=== PATIENT | male | born 1950 | race Caucasian/White ===

== ENCOUNTER 2018-06-10 11:56 | Day surgery (SDC) | payer MEDICARE ==
[~2018-06-10] VITALS: Ht 185.4 cm; Wt 70.5 kg
[~2018-06-10 11:56] MED LIST: Atrovent Inha12.9 GM INH; BREO ELLIPTA 21 EACH INH; CETI5 PO; Crutch1 EACH MISC; DOXY100 PO; Depo-Testos200 MG/ML IM; GLIP5ER PO; GLYB2.5 PO; Glucophage1000 MG PO; Glyburide5 MG PO; HYDR-86; IPRAOI INH; LIRA0.6P; LOVA40 PO; METF500C PO; MIRT15ST PO; Norco 10-325 T1 EACH PO; PROAIR RESPICL90 MCG INH; Prinivil10 MG PO; SITA100T2 PO; Sudogest60 MG PO; TIOT18 INH
--- NOTE | 2018-06-10 13:15 | NUR ---
06/10/18 1315 Nevaeh Judge 1ST IV ATTEMPT BY MUNIR PORTER. 2ND IV ATTEMPT IN RIGHT AC IS A SUCCESSFUL IV ATTEMPT. PT WASN'T IN DISTRESS DURNING ATTEMPTS.
--- NOTE | 2018-06-10 14:59 | NUR ---
06/10/18 1459 Magali Mendez V COLONOSCOPY ABORTED D/T INCOMPLETE PREP. DR NOT ABLE TO PHOTOGRAPH CECUM.
--- NOTE | 2018-06-10 15:49 | NUR ---
06/10/18 1549 Magali Mendez V PT DENIES ANY NEW PAIN AND NAUSEA AT THIS ITME.
== END 2018-06-10 15:48 | disposition home or self-care (01) ==
LOC: ORSCSDS 11:56
PROVIDERS: Surgery
PROC: 0DB58ZX Excision of Esophagus, Via Natural or Artificial Opening Endoscopic, Diagnostic (ICD-10-PCS; principal; 2018-06-10 13:45)
PROC: 0DBP8ZX Excision of Rectum, Via Natural or Artificial Opening Endoscopic, Diagnostic (ICD-10-PCS; principal; 2018-06-10 13:45)
PROC: 0DB68ZX Excision of Stomach, Via Natural or Artificial Opening Endoscopic, Diagnostic (ICD-10-PCS; principal; 2018-06-10 13:45)
PROC: 0DB98ZX Excision of Duodenum, Via Natural or Artificial Opening Endoscopic, Diagnostic (ICD-10-PCS; principal; 2018-06-10 13:45)
DX: D13.0 Benign neoplasm of esophagus (principal); K25.9 Gastric ulcer, unspecified as acute or chronic, without hemorrhage or perforation; K29.80 Duodenitis without bleeding; K62.1 Rectal polyp; J44.9 Chronic obstructive pulmonary disease, unspecified; E11.9 Type 2 diabetes mellitus without complications; Z79.4 Long term (current) use of insulin; Z79.899 Other long term (current) drug therapy
CPT/HCPCS: 82947; 88305; 88341; 88342

== ENCOUNTER 2022-06-06 01:28 | Day surgery (SDC) | payer MEDICARE | END 2022-06-06 22:58 | disposition home or self-care (01) | LOC: WOUND 01:28 | DX: M87.9 Osteonecrosis, unspecified (principal); E11.59 Type 2 diabetes mellitus with other circulatory complications; J44.9 Chronic obstructive pulmonary disease, unspecified; D50.9 Iron deficiency anemia, unspecified; C61 Malignant neoplasm of prostate; Z72.0 Tobacco use | CPT/HCPCS: G0463 ==

== ENCOUNTER 2023-02-27 16:12 | Inpatient (IN) | payer OTHER ==
[~2023-02-27] VITALS: Ht 185.4 cm; Wt 66.5 kg
[~2023-02-27 16:12] MED LIST changes: +HYDR1TAB94 PO; -Norco 10-325 T1 EACH PO
[2023-02-27 18:10] LABS: BASOPHILS ABSOLUTE AUTO 0.06 K/mm3 (0.00-0.23); BASOPHILS PERCENT AUTO 0 % (0-2); EOSINOPHILS ABSOLUTE AUTO 0.02 K/mm3 (0.00-0.68); EOSINOPHILS PERCENT AUTO 0 % (0-6); Hemoglobin 14.1 g/dL (13.5-17.5); IMMATURE GRAN ABSOLUTE AUTO 0.18 K/mm3 (0.00-0.10); IMMATURE GRAN PERCENT AUTO 1 % (0-1); LYMPHOCYTES ABSOLUTE AUTO 0.88 K/mm3 (0.84-5.20); LYMPHOCYTES PERCENT AUTO 6 % (21-46); MONOCYTES ABSOLUTE AUTO 0.66 K/mm3 (0.16-1.47); MONOCYTES PERCENT AUTO 5 % (4-13); Mean Corpuscular HGB 29.9 pg (26.0-34.0); Mean Corpuscular HGB Conc 32.8 g/dL (31.5-36.5); Mean Corpuscular Volume 91 fL (80-100); Mean Platelet Volume 9.7 fL (9.1-12.4); NEUTROPHILS ABSOLUTE AUTO 11.87 K/mm3 (1.96-9.15); NEUTROPHILS PERCENT AUTO 87 % (41-73); Platelet Count 319 K/mm3 (150-400); RDW Coefficient Variation 13.1 % (11.7-14.2); RDW Standard Deviation 43.4 fL (35.1-46.3); Red Blood Cell Count 4.71 M/mm3 (4.30-5.90); White Blood Cell Count 13.67 K/mm3 (4.00-11.30)
[2023-02-27 18:14] LABS: Source, Urine Clean Catch
[2023-02-27 18:26] LABS: Appearance, Urine Clear (Clear); Bilirubin, Urine Neg (Neg); Blood, Urine Neg (Neg); Color, Urine Yellow (P-Yellow); Glucose Qualitative, Urine 4+ (Neg); Ketones, Urine 4+ (Neg); Leukocyte Esterase, Urine Neg (Neg); Nitrite, Urine Neg (Neg); Protein, Urine 2+ (Neg); Specific Gravity, Urine 1.025 (1.003-1.022); Urobilinogen, Urine NORM (Normal)
[2023-02-27 18:32] LABS: Albumin, Blood 2.4 g/dL (3.4-5.0); Albumin/Globulin Ratio 0.6 (0.8-1.8); Bilirubin, Total 0.5 mg/dL (0.1-1.0); Bun/Creatinine Ratio 28.9 (12.0-20.0); Calcium, Blood 7.7 mg/dL (8.5-10.1); Creatinine, Blood 0.55 mg/dL (0.60-1.20); Globulin, Blood 3.8 g/dL (2.2-4.0); Potassium, Blood 5.2 mmol/L (3.5-5.5); Total Protein, Blood 6.2 g/dL (6.4-8.2)
[2023-02-27 18:34] LABS: White Blood Cells, Urine 0-2 /hpf (0-5)
[2023-02-27 18:35] LABS: Bacteria Few /hpf; Red Blood Cells, Urine 0-2 /hpf (0-2); Squamous Epithelial Cells Not Seen /hpf (Few)
[2023-02-27 22:29] LABS: Base Excess Venous -18.2 mmol/L; Bicarbonate Venous 12.2 mmol/L (24.0-30.0); PCO2 Venous 27.2 mmHg (38-42)
[2023-02-27 22:30] LABS: pH Blood Venous 7.18 (7.34-7.37)
[2023-02-28] VITALS (66 sets, daily range): BP systolic 84–178; BP diastolic 33–125
[2023-02-28 00:24] LABS: Beta-hydroxybutyrate 51.9 mg/dL (0.2-2.8)
[2023-02-28 01:56] LABS: White Blood Cell Count 11.76 K/mm3 (4.00-11.30)
[2023-02-28 01:57] LABS: BASOPHILS ABSOLUTE AUTO 0.07 K/mm3 (0.00-0.23); BASOPHILS PERCENT AUTO 1 % (0-2); EOSINOPHILS ABSOLUTE AUTO 0.04 K/mm3 (0.00-0.68); EOSINOPHILS PERCENT AUTO 0 % (0-6); Hematocrit 39.2 % (37.0-53.0); Hemoglobin 13.6 g/dL (13.5-17.5); IMMATURE GRAN ABSOLUTE AUTO 0.43 K/mm3 (0.00-0.10); IMMATURE GRAN PERCENT AUTO 4 % (0-1); LYMPHOCYTES PERCENT AUTO 9 % (21-46); MONOCYTES ABSOLUTE AUTO 0.87 K/mm3 (0.16-1.47); MONOCYTES PERCENT AUTO 7 % (4-13); Mean Corpuscular HGB 30.6 pg (26.0-34.0); Mean Corpuscular HGB Conc 34.7 g/dL (31.5-36.5); Mean Corpuscular Volume 88 fL (80-100); NEUTROPHILS ABSOLUTE AUTO 9.25 K/mm3 (1.96-9.15); NEUTROPHILS PERCENT AUTO 79 % (41-73); Platelet Count 289 K/mm3 (150-400); RDW Coefficient Variation 13.1 % (11.7-14.2); RDW Standard Deviation 42.4 fL (35.1-46.3); Red Blood Cell Count 4.44 M/mm3 (4.30-5.90)
[2023-02-28] MEDS ORDERED: BUPR150ER PO (03:21)
[2023-02-28] MEDS ORDERED: PERIDEX15 ML MM (03:22)
[2023-02-28] MEDS ORDERED: IBUP800 PO (03:26)
[2023-02-28] MEDS ORDERED: ONDA4ODT MM (03:29)
[2023-02-28] MEDS ORDERED: HUMALOG KW100 UNIT/1 SC (03:29)
[2023-02-28] MEDS ORDERED: METF500 PO (03:32)
[2023-02-28] MEDS ORDERED: ABIRATERONE AC250 MG PO (03:34)
[2023-02-28] MEDS ORDERED: OXYC5 PO (03:34)
--- NOTE | 2023-02-28 04:00 | NUR ---
PT ADMITTED TO ROOM ICU 12 ARRIVING AT 0235 THIS MORNING. PT NOTED TO BE HOLDING HIS FACE NEAR AREA OF ABSECESS. HAVE MEDICATED PT WITH 1 MG DILAUDID WITH GOOD RELIEF. PT ABLE TO STAND AT SIDE OF BED WITH SOME ASSIST WITH LINES AND CORDS. PT VOIDS Q.S. INSULIN DRIP INFUSING. HOURLY GLUCOSE CHECKES, WILL CONTINUE TO MONITOR.
[2023-02-28 07:00] LABS: Albumin, Blood 2.7 g/dL (3.4-5.0); Albumin/Globulin Ratio 0.8 (0.8-1.8); Bilirubin, Total 0.4 mg/dL (0.1-1.0); Bun/Creatinine Ratio 27.2 (12.0-20.0); Calcium, Blood 8.6 mg/dL (8.5-10.1); Creatinine, Blood 0.55 mg/dL (0.60-1.20); Globulin, Blood 3.6 g/dL (2.2-4.0); Total Protein, Blood 6.3 g/dL (6.4-8.2)
--- NOTE | 2023-02-28 07:17 | NUR ---
POWERGLIDE STARTED IN LEFT UPPER ARM. PT TOLERATES THIS WELL. HAVE BEEN ABLE TO DO LABS AND GLUCOSE LEVELS. INSULIN DRIP CURRENT AT 5 UNITS PER HOUR. PT HAS GOOD RELIEF FROM ABSCESS FROM DILAUDID. NO S/S ADVERSE REACTIONS TO ANTIBIOTIC THERAPY. WILL CONTINUE TO MONITOR, AND WILL REPORT OFF TO ONCOMING RN.
--- NOTE | 2023-02-28 08:00 | NUR ---
INITIAL ASSESSMENT PATIENT ALERT AND ORIENTED X 4, CREEK. PATIENT AFEBRILE. PATIENT COMPLAINS OF PAIN TO THROAT WHERE SUBMANDIBULAR ABCESS/ MASS IS LOCATED. PATIENT UNSTEADY ON FEET; SBA. PATIENT SATTING 90% AND GREATER ON RA. PATIENT IN SR WITH FREQUENT PACS, HR IN THE 70S. SBP 130S TO 140S. SCDS PLACED. PATIENT'S MOUTH FOUL SMELLING. PATIENT NPO AT THIS TIME. WNL. SKIN APPEARS WNL. D5 1/2 NS INFUSING AT 125 MLS/ HOUR. INSULIN DRIP AT 5 UNITS/ HOUR. NS TKO. BED LOW, CALL LIGHT IN REACH. WILL CONTINUE TO MONITOR THROUGHOUT SHIFT.
--- NOTE | 2023-02-28 11:02 | NUR ---
"Spiritual Care | Pt. request. Pt. is resting in his bed but responds when I enter the room. Pt. displayed evidence of isolation from his support. Pt. verbalized that his daughters are [place]. Pt. displays evidence of guilt. Offered spiritual support. Asked guiding questions about nino, and prayed prayers of confession with the Pt. Prt. verbalized gratitude for the prayer and spiritual care support."
[2023-02-28 11:23] LABS: Bun/Creatinine Ratio 22.1 (12.0-20.0); Calcium, Blood 8.4 mg/dL (8.5-10.1); Creatinine, Blood 0.59 mg/dL (0.60-1.20); Potassium, Blood 3.2 mmol/L (3.5-5.5)
--- NOTE | 2023-02-28 12:30 | NUR ---
PATIENT AFEBRILE. HR 70S TO 80S. SBP 90S TO 120S. BLOOD SUGAR 164. INSULIN DRIP AND D5 1/2 NS DC'D. NS STARTED. PATIENT GIVEN PRN NORCO FOR COMPLAINTS OF THROAT PAIN. BED LOW, CALL LIGHT IN REACH. CARE CONTINUES.
--- NOTE | 2023-02-28 16:40 | NUR ---
PATIENT AFEBRILE. HR 60S TO 70S. SBP 90S TO LOW 100S. NS 143; NO COVERAGE INDICATED. PATIENT PLACED ON ADA DIET. ARNULFO DRAIN TO SUBMANDIBULAR AREA. BED LOW, CALL LIGHT IN REACH. CARE CONTINUES.
[2023-02-28 17:19] LABS: Bun/Creatinine Ratio 19.8 (12.0-20.0); Calcium, Blood 8.4 mg/dL (8.5-10.1); Creatinine, Blood 0.66 mg/dL (0.60-1.20); Potassium, Blood 3.5 mmol/L (3.5-5.5)
--- NOTE | 2023-02-28 17:54 | NUR ---
SHIFT SUMMARY PATIENT REMAINED ALERT AND ORIENTED X 4, NUIQSUT. PATIENT REMAINED CALM AND COOPERATIVE. PATIENT UNSTEADY ON FEET; SBA AT SIDE OF BED TO USE URINAL. PAITENT RECEIVED PRN FENTANYL AND NORCO FOR COMPLAINTS OF THROAT PAIN. PATIENT REMAINED SATTING 90% AND GREATER ON RA. PATIENT SR TO ST WITH PACS, HR 60S TO 150S. BP SOFT AFTER PATIENT RECEIVED PAIN MEDS FOR ABCESS DRAINAGE WITH DR. LANDAVERDE. PATIENT RECEIVED 500 CC NS BOLUS AND BP IMPROVED. NO BM THIS SHIFT. PATIENT PLACED ON ADA, FULL LIQUID DIET PATIENT STILL HAVING TROUBLE SWALLOWING WITH THROAT PAIN. PATIENT VOIDED 575 MLS OF YELLOW COLORED URINE. DR. LANDAVERDE DRAINED, FLUSHED AND PLACED ARNULFO DRAIN TO ABCESS IN SUBMANDIBULAR AREA; PURULENT FOUL/ RANCID SMELLING FLUID DRAINED. PATIENT ON INSULIN DRIP THIS AM. CO2 CORRECTED AND PATIENT TRANSITIONED TO SS INSULIN. LONG ACTING INSULIN WILL BE STARTED TONIGHT. PATIENT RECEIVED ZOSYN AND VANCO. PATIENT RECEIVED 20 MEQ KCL FOR POTASSIUM OF 3.2 THIS SHIFT. PATIENT REFUSED BED BATH. PATIENT SPOKE WITH DAUGHTER MULTIPLE TIMES ON PHONE THIS SHIFT. BED LOW, CALL LIGHT IN REACH. PATIENT WILL BE TRANSFERRING TO PCU, ROOM 17 SHORTLY.
--- NOTE | 2023-02-28 18:30 | NUR ---
PATIENT SUCCESSFULLY TRANSFERRED TO PCU. ALL BELONGINGS SENT WITH PATIENT.
--- NOTE | 2023-02-28 18:52 | NUR ---
TRANSFER: Pt transfered into room PCU 17 from ICU 12. Pt oriented to call light and room. C/O 5/10 pain in throat, neck. Medicated per orders. VSS. Will report to night RN.
[2023-02-28 23:21] LABS: Bun/Creatinine Ratio 18.3 (12.0-20.0); Calcium, Blood 8.5 mg/dL (8.5-10.1); Creatinine, Blood 0.66 mg/dL (0.60-1.20); Potassium, Blood 3.4 mmol/L (3.5-5.5)
[2023-03-01] VITALS (7 sets, daily range): BP systolic 113–130; BP diastolic 44–67
[2023-03-01 05:19] LABS: BASOPHILS ABSOLUTE AUTO 0.02 K/mm3 (0.00-0.23); BASOPHILS PERCENT AUTO 0 % (0-2); EOSINOPHILS ABSOLUTE AUTO 0.09 K/mm3 (0.00-0.68); EOSINOPHILS PERCENT AUTO 2 % (0-6); Hematocrit 31.2 % (37.0-53.0); Hemoglobin 10.8 g/dL (13.5-17.5); IMMATURE GRAN ABSOLUTE AUTO 0.07 K/mm3 (0.00-0.10); IMMATURE GRAN PERCENT AUTO 1 % (0-1); LYMPHOCYTES ABSOLUTE AUTO 1.31 K/mm3 (0.84-5.20); LYMPHOCYTES PERCENT AUTO 21 % (21-46); MONOCYTES ABSOLUTE AUTO 0.58 K/mm3 (0.16-1.47); MONOCYTES PERCENT AUTO 9 % (4-13); Mean Corpuscular HGB 29.8 pg (26.0-34.0); Mean Corpuscular HGB Conc 34.6 g/dL (31.5-36.5); Mean Corpuscular Volume 86 fL (80-100); Mean Platelet Volume 9.2 fL (9.1-12.4); NEUTROPHILS ABSOLUTE AUTO 4.09 K/mm3 (1.96-9.15); NEUTROPHILS PERCENT AUTO 66 % (41-73); Platelet Count 242 K/mm3 (150-400); RDW Coefficient Variation 13.1 % (11.7-14.2); RDW Standard Deviation 40.9 fL (35.1-46.3); Red Blood Cell Count 3.63 M/mm3 (4.30-5.90); White Blood Cell Count 6.16 K/mm3 (4.00-11.30)
[2023-03-01 05:37] LABS: Albumin, Blood 2.3 g/dL (3.4-5.0); Anion Gap 7 mmol/L (6-16); Blood Urea Nitrogen 11 mg/dL (8-24); Bun/Creatinine Ratio 18.4 (12.0-20.0); CO2, Blood 22 mmol/L (21-32); Calcium, Blood 8.3 mg/dL (8.5-10.1); Chloride, Blood 114 mmol/L (98-108); Glomerular Filtration Rate 103 (60-); Glucose, Blood 220 mg/dL (70-99); Phosphorus, Blood 1.5 mg/dL (2.5-4.9); Potassium, Blood 3.2 mmol/L (3.5-5.5); Sodium, Blood 143 mmol/L (136-145)
--- NOTE | 2023-03-01 06:42 | NUR ---
SHIFT SUMMARY PATIENT ALERT AND ORIENTED X4. STAND BY ASSIST TO THE RESTROOM FOR LINE MANAGEMENT. ON ROOM AIR SATING HIGH 90'S. GAUZE DRESSING IN PLACE TO CATCH DRAINAGE FROM ABSCESS. PATIENT ABLE TO SWALLOW MEDICATIONS WITH MINIMAL DIFFICULTY. MEDICATED PER EMAR ONCE FOR PAIN. HAD NO COMPLAINTS OF SHORTNESS OF BREATH. VITAL SIGNS STABLE, NO HYPOTENSION NOTED. WILL CONTINUE TO MONITOR. CALL LIGHT WITHIN REACH.
[2023-03-01 11:41] LABS: Bun/Creatinine Ratio 16.9 (12.0-20.0); Calcium, Blood 8.3 mg/dL (8.5-10.1); Creatinine, Blood 0.65 mg/dL (0.60-1.20)
[2023-03-01 16:41] LABS: Vancomycin, Trough 10.6 ug/mL (5.0-10.0)
--- NOTE | 2023-03-01 18:34 | NUR ---
ASSUMED CARE OF PT AT 0700 THIS AM. NO ACUTE CHANGES NOTED T/O THE SHIFT. PT STATES HE IS MORE PAINFUL TODAY, MEDICATED WITH IV AND PO MEDICATIONS PER MD ORDERS T/O THE SHIFT. PT OOB WITH STANDBY ASSISTANCE TO REST ROOM. DRESSING TO SUBMANDIBULAR ABCESS SITE CHANGED X2 TODAY, MODERATE AMOUNT OF SEROSANG DRAINAGE EACH TIME. ARNULFO DRAIN IN PLACE, ALSO DRAINING SEROSANG FLUID. SUTURES IN PLACE. PT APPEARS TO BE IN A MUCH BETTER MOOD THIS EVENING WITH A FRIEND VISITING HIM AT BEDSIDE. VSS T/O THE SHIFT. PT IS ABLE TO USE CALL LIGHT FOR NEEDS, CALL LIGHT IN REACH. WILL CONTINUE TO MONITOR AND GIVE REPORT TO NOC SHIFT RN.
[2023-03-02 03:26] VITALS: BP 142/66
[2023-03-02 03:47] LABS: BASOPHILS ABSOLUTE AUTO 0.02 K/mm3 (0.00-0.23); BASOPHILS PERCENT AUTO 0 % (0-2); EOSINOPHILS ABSOLUTE AUTO 0.17 K/mm3 (0.00-0.68); EOSINOPHILS PERCENT AUTO 4 % (0-6); Hematocrit 28.9 % (37.0-53.0); Hemoglobin 10.1 g/dL (13.5-17.5); IMMATURE GRAN ABSOLUTE AUTO 0.03 K/mm3 (0.00-0.10); IMMATURE GRAN PERCENT AUTO 1 % (0-1); LYMPHOCYTES ABSOLUTE AUTO 1.58 K/mm3 (0.84-5.20); LYMPHOCYTES PERCENT AUTO 32 % (21-46); MONOCYTES PERCENT AUTO 10 % (4-13); Mean Corpuscular HGB Conc 34.9 g/dL (31.5-36.5); Mean Corpuscular Volume 86 fL (80-100); Mean Platelet Volume 9.4 fL (9.1-12.4); NEUTROPHILS ABSOLUTE AUTO 2.57 K/mm3 (1.96-9.15); NEUTROPHILS PERCENT AUTO 53 % (41-73); Platelet Count 233 K/mm3 (150-400); RDW Coefficient Variation 13.3 % (11.7-14.2); RDW Standard Deviation 41.2 fL (35.1-46.3); Red Blood Cell Count 3.37 M/mm3 (4.30-5.90); White Blood Cell Count 4.87 K/mm3 (4.00-11.30)
[2023-03-02 04:07] LABS: Bun/Creatinine Ratio 12.4 (12.0-20.0); Calcium, Blood 7.9 mg/dL (8.5-10.1); Creatinine, Blood 0.56 mg/dL (0.60-1.20); Potassium, Blood 3.1 mmol/L (3.5-5.5)
--- NOTE | 2023-03-02 06:19 | NUR ---
SHIFT SUMMARY PATIENT ALERT AND ORIENTED x4, ABLE TO MAKE NEEDS KNOWN TO STAFF. BP STABLE, TELE READING SR WITH OCC. PACs, REMAINED ON RA DURING THE NIGHT WITH SPO2 >95%, NO SIGNS OF AIRWAY COMPROMISE THIS SHIFT. ARNULFO DRAIN TO SUBMENTAL AREA WITH MODERATE SEROUSANGINOUS DRAINAGE, DRESSING CHANGED OVERNIGHT. MEDICATED PATIENT FOR PAIN. PATIENT STANDBY ASSIST WITH WALKER INTO BATHROOM. ADEQUATE OUTPUT DURING THE NIGHT. TOLERATING PO. NO OTHER CHANGES, WILL REPORT TO DAY SHIFT RN.
[2023-03-02 07:23] VITALS: BP 112/98
[2023-03-02 11:37] VITALS: BP 145/61
--- NOTE | 2023-03-02 13:46 | NUR ---
PT ALERT AND ORIENTED X 4, ANSWERS QUESTIONS APPROPRIATELY AND CAN MAKE NEEDS KNOWN. BANDAGE IN PLACE ON PT'S CHIN AND WAS CHANGED THIS MORNING, PT TOLERATED WELL. PT'S O2 SATURATION ABOVE 92% ON RA, PT DENIES SOB. PT'S HR 70'S-80'S, BP STABLE, PT DENIES CHEST PAIN/PRESSURE. IV REMOVED FROM PT'S L WRIST, POWERGLIDE AND IV PATENT, FLUSHED AND SALINE LOCKED. PT RESTING IN BED, CALL LIGHT WITHIN REACH.
[2023-03-02 15:42] VITALS: BP 131/53
--- NOTE | 2023-03-02 17:29 | NUR ---
PT TRANSFERRED TO MEDICAL FLOOR WITH ALL OF HIS BELONGINGS & CHART VIA WHEELCHAIR BY MYSELF AND [employer]. REPORT WAS GIVEN TO ROOM 327 NURSE. PT WAS STABLE AT TIME OF TRANSFER.
--- NOTE | 2023-03-02 17:53 | NUR ---
SHIFT SUMMARY PT ARRIVED ON UNIT AT 1730 VIA W/C. PT ORIENTED TO UNIT. PT A&OX4 AND FOLLOWS DIRECTIONS APPROPRIATELY. VSS. ZOSYN AND VANCO INFUSING IN RIGHT FOREARM AND LEFT UPPER ARM. NO ACUTE EVENTS DURING MY SHIFT, NO QUESTIONS OR CONCERNS FROM PT.
[2023-03-02 19:37] VITALS: BP 139/68
--- NOTE | 2023-03-03 03:57 | NUR ---
SHIFT SUMMARY A/OX4. ROOM AIR. MODERATE OUTPUT OF PURULENT DRAINAGE. BUNDLE OF GUAZE TO COLLECT OUTPUT CHANGED TWICE SO FAR. IBUPROFEN PRN X1. NS INFUSING. PT UP TO BATHROOM STANDBY ASSIST. CALL LIGHT IN REACH. NONSKIC SOCKS ON. ABLE TO MAKE NEEDS KNOWN.
[2023-03-03 05:50] LABS: Hematocrit 31.5 % (37.0-53.0); Mean Corpuscular HGB 29.9 pg (26.0-34.0); Mean Corpuscular HGB Conc 34.9 g/dL (31.5-36.5); Mean Corpuscular Volume 86 fL (80-100); Mean Platelet Volume 9.2 fL (9.1-12.4); Platelet Count 226 K/mm3 (150-400); RDW Coefficient Variation 13.2 % (11.7-14.2); RDW Standard Deviation 40.9 fL (35.1-46.3); Red Blood Cell Count 3.68 M/mm3 (4.30-5.90); White Blood Cell Count 4.03 K/mm3 (4.00-11.30)
[2023-03-03 05:51] VITALS: BP 147/51
[2023-03-03 06:19] LABS: Albumin, Blood 2.4 g/dL (3.4-5.0); Anion Gap 5 mmol/L (6-16); Blood Urea Nitrogen 5 mg/dL (8-24); Bun/Creatinine Ratio 9.2 (12.0-20.0); CO2, Blood 27 mmol/L (21-32); Calcium, Blood 8.1 mg/dL (8.5-10.1); Chloride, Blood 116 mmol/L (98-108); Creatinine, Blood 0.54 mg/dL (0.60-1.20); Glomerular Filtration Rate 106 (60-); Glucose, Blood 61 mg/dL (70-99); Magnesium, Blood 1.7 mg/dL (1.6-2.4); Phosphorus, Blood 2.4 mg/dL (2.5-4.9); Potassium, Blood 3.1 mmol/L (3.5-5.5); Sodium, Blood 148 mmol/L (136-145); Vancomycin, Trough 15.1 ug/mL (5.0-10.0)
[2023-03-03 07:23] VITALS: BP 144/78
[2023-03-03 15:37] VITALS: BP 131/57
--- NOTE | 2023-03-03 18:30 | NUR ---
SHIFT SUMMARY: Pt remains A&O x3 this shift. VSS. George drain in place with minimal output today. Po pain med x1 today effective. Pt independent with oral care. Tolerating full liquid diet. Up to bathroom independently. No further needs id or verbalized at this time. Will continue to monitor this shift.
[2023-03-03 20:02] VITALS: BP 132/60
--- NOTE | 2023-03-04 03:38 | NUR ---
SHIFT SUMMARY A/OX4, ROOM AIR, ABLE TO MAKE NEEDS KNOWN. MINIMAL OUTPUT OF ARNULFO DRAIN, DRESSING CHANGED X1. PRN IBUPROFEN X1 GIVEN. PT AMBULATES AD OSWALDO TO BATHROOM. BRIEF ON FOR LEAKAGE OF LOOSE BOWEL. BED LOCKED IN LOW POSITION, CALL LIGHT IN REACH, NONSKID SOCKS ON, SIDE RAILS UP X2.
[2023-03-04 04:20] VITALS: BP 151/84
[2023-03-04 06:03] LABS: Albumin, Blood 2.6 g/dL (3.4-5.0); Anion Gap 4 mmol/L (6-16); Blood Urea Nitrogen 9 mg/dL (8-24); Bun/Creatinine Ratio 14.5 (12.0-20.0); CO2, Blood 28 mmol/L (21-32); Calcium, Blood 8.4 mg/dL (8.5-10.1); Chloride, Blood 109 mmol/L (98-108); Creatinine, Blood 0.62 mg/dL (0.60-1.20); Glomerular Filtration Rate 102 (60-); Glucose, Blood 217 mg/dL (70-99); Phosphorus, Blood 3.3 mg/dL (2.5-4.9); Sodium, Blood 141 mmol/L (136-145); Vancomycin, Trough 15.9 ug/mL (5.0-10.0)
[2023-03-04 07:18] VITALS: BP 154/89
[2023-03-04 15:35] VITALS: BP 125/60
[2023-03-04 19:59] VITALS: BP 118/73
[2023-03-05 04:09] VITALS: BP 130/55
--- NOTE | 2023-03-05 05:31 | NUR ---
SHIFT SUMMARY PT ALERT AND ORIENTED X 4. IND IN ROOM. HR STABLE. BP STABLE. NO CP OR PRESSURE REPORTED. OXYGEN SATURATION MAINTAINED ABOVE 92% ON RA. 2X2 GAUZE AND DRESSING APPLIED TO SUBMANDIBULAR WOUND. NO ACUTE CHANGES T/O SHIFT. CALL LIGHT WITHIN REACH. WILL CONT TO MONITOR UNTIL REPORT GIVEN TO DAYSHIFT RN.
[2023-03-05 07:57] VITALS: BP 136/58
[2023-03-05 07:58] VITALS: BP 136/58
[2023-03-05 15:11] VITALS: BP 121/57
--- NOTE | 2023-03-05 18:32 | NUR ---
SHIFT SUMMARY A&OX4, COOPERATIVE WITH CARE AND PLEASANT. DENIES CP/PRESSURE, HEADACHE, DIZZINESS, OR SOB. COMPLAINED OF 6/10 PAIN TO ABSCESS SITE UNDER CHIN AND MEDICATED PER EMAR. PICC LINE PLACED BY MUNIR DIALLO IN THE [place]. SITE BLED OUT OF DRESSING AND PRESSURE WRAP PLACED FOR ABOUT AN HOUR. ABSCESS FLUSHED WITH NS AND WOUND CLEANSER. SMALL AMOUNT OF PURULENT DRAINAGE NOTED. COVERED WITH GAUZE AND SECURED WITH NETTING PER PATIENT REQUEST. NO ACUTE EVENTS THIS SHIFT. PLAN FOR PATIENT TO DISCHARGE TO [facility] TOMORROW PENDING INSURANCE AUTHORIZATION. PATIENT CURRENTLY RESTING IN BED. CALL LIGHT WITHIN REACH.
[2023-03-05 19:58] VITALS: BP 134/47
--- NOTE | 2023-03-06 04:16 | NUR ---
SHIFT SUMMARY A/OX4, INDEPENDENT. GUAZE TO WOUND ON CHIN C,D,I. PICC LINE ASSESSED AND CAPPED. IBUPROFEN X1 GIVEN. ZOFRAN X1 GIVEN FOR NAUSEA. CALL LIGHT IN REACH, BED LOCKED IN LOW POSITION, NONSKIC SOCKS ON.
[2023-03-06 05:00] VITALS: BP 144/49
[2023-03-06 07:58] VITALS: BP 124/64
[2023-03-06 12:26] LABS: Influenza A, PCR NEGATIVE (NEGATIVE); Influenza B, PCR NEGATIVE (NEGATIVE); Resp Syncytial Virus, PCR NEGATIVE (NEGATIVE); SARS-Cov-2 (COVID-19) PCR, MMC NEGATIVE (NEGATIVE)
[2023-03-06] MEDS ORDERED: BANATROL PLUS1 EAC1 PO (12:39)
[2023-03-06] MEDS ORDERED: Calcium Carbon500 MG PO (12:40)
[2023-03-06] MEDS ORDERED: INSULIN GL100 UNIT/2 SC (12:41)
[2023-03-06] MEDS ORDERED: PIPERACIL-TA3.375 G1 IV (12:42)
--- NOTE | 2023-03-06 15:00 | NUR ---
SHIFT SUMMARY AND DISCHARGE PATIENT INDEPENDENT IN THE ROOM. PATIENT HAVING LOOSE STOOLS WHEN GOING TO THE BATHROOM. PATIENT CONTINUES TO BE ON ANTIBIOTICS. PATIENT TO TRANSFER TO [facility] FOR ANTIBIOTIC THERAPY. DRESSING IN PLACE UNDER CHIN. REPORT CALLED TO [facility]. POWERGLIDE REMOVED PRIOR TO DISCHARGE. DISCHARGE PACKET SENT WITH PATIENT. FRIEND TRANSPORTED PATIENT TO [facility].
[2023-03-06] MEDS ORDERED: VICTOZA 2-0.6 MG/0.1 SC (15:07)
== END 2023-03-06 15:20 | DRG 871 ==
LOC: ER 16:12 → PCU 02-28 01:00 → ICUE 02-28 01:00 → PCU 02-28 18:36 → MEDS 03-02 17:20 → ENPENDDIS 03-06 11:52 → MEDS 03-06 15:20
PROVIDERS: Emergency Medicine; Family Medicine; Internal Medicine; Student in an Organized Health Care Education/Training Program; ADMIT Internal Medicine
PROC: 3E03329 Introduction of Other Anti-infective into Peripheral Vein, Percutaneous Approach (ICD-10-PCS; 2023-02-27)
PROC: 0J950ZZ Drainage of Left Neck Subcutaneous Tissue and Fascia, Open Approach (ICD-10-PCS; principal; 2023-02-28)
PROC: 0J940ZZ Drainage of Right Neck Subcutaneous Tissue and Fascia, Open Approach (ICD-10-PCS; 2023-02-28)
PROC: 02HV33Z Insertion of Infusion Device into Superior Vena Cava, Percutaneous Approach (ICD-10-PCS; 2023-03-05)
DX: A41.59 Other Gram-negative sepsis (principal); E11.10 Type 2 diabetes mellitus with ketoacidosis without coma; L02.01 Cutaneous abscess of face; C79.51 Secondary malignant neoplasm of bone; E87.0 Hyperosmolality and hypernatremia; E87.1 Hypo-osmolality and hyponatremia; E11.69 Type 2 diabetes mellitus with other specified complication; Z66 Do not resuscitate; E87.6 Hypokalemia; I10 Essential (primary) hypertension; E78.00 Pure hypercholesterolemia, unspecified; J44.9 Chronic obstructive pulmonary disease, unspecified; C61 Malignant neoplasm of prostate; E86.0 Dehydration; M27.2 Inflammatory conditions of jaws; T38.3X6A Underdosing of insulin and oral hypoglycemic [antidiabetic] drugs, initial encounter; E83.39 Other disorders of phosphorus metabolism; F32.A Depression, unspecified; Z79.890 Hormone replacement therapy; Z79.891 Long term (current) use of opiate analgesic; Z88.5 Allergy status to narcotic agent; Z79.84 Long term (current) use of oral hypoglycemic drugs; Z79.51 Long term (current) use of inhaled steroids; Z79.4 Long term (current) use of insulin; Z91.138 Patient's unintentional underdosing of medication regimen for other reason; Z79.1 Long term (current) use of non-steroidal anti-inflammatories (NSAID); Z11.52 Encounter for screening for COVID-19
CPT/HCPCS: 0241U; 36415; 36569; 70491; 71046; 80048; 80053; 80069; 80202; 81001; 82010; 82803; 82947; 83036; 83605; 83735; 85025; 85027; 85651; 86140; 87040; 87070; 87075; 87205; 93005; 93010; 94640; 94664; 94760; 96361; 96365-59; 96375; 97110; 97162; 97166; 97530; 97535; 99285-25; A9270; C1751; J0295; J1100; J1170; J1650; J1815; J2405; J2543; J3010; J3370; J3480; J7030; J7040; J7042; J7050; J7060; J7120; Q9967

== ENCOUNTER → 2023-03-28 | Outpatient (CLI) | payer OTHER ==
[~2023-03-28] MED LIST changes: +ABIRATERONE AC250 MG PO; +BANATROL PLUS1 EAC1 PO; +BUPR150ER PO; +Calcium Carbon500 MG PO; +HUMALOG KW100 UNIT/1 SC; +IBUP800 PO; +INSULIN GL100 UNIT/2 SC; +METF500 PO; +ONDA4ODT MM; +OXYC5 PO; +PERIDEX15 ML MM; +PIPERACIL-TA3.375 G1 IV; +VICTOZA 2-0.6 MG/0.1 SC
[2023-03-28 13:38] LABS: BASOPHILS ABSOLUTE AUTO 0.02 K/mm3 (0.00-0.23); BASOPHILS PERCENT AUTO 1 % (0-2); EOSINOPHILS ABSOLUTE AUTO 0.41 K/mm3 (0.00-0.68); EOSINOPHILS PERCENT AUTO 10 % (0-6); Hemoglobin 11.3 g/dL (13.5-17.5); IMMATURE GRAN ABSOLUTE AUTO 0.03 K/mm3 (0.00-0.10); IMMATURE GRAN PERCENT AUTO 1 % (0-1); LYMPHOCYTES ABSOLUTE AUTO 1.26 K/mm3 (0.84-5.20); LYMPHOCYTES PERCENT AUTO 31 % (21-46); MONOCYTES PERCENT AUTO 10 % (4-13); Mean Corpuscular HGB 29.8 pg (26.0-34.0); Mean Corpuscular HGB Conc 32.3 g/dL (31.5-36.5); Mean Corpuscular Volume 92 fL (80-100); NEUTROPHILS ABSOLUTE AUTO 1.93 K/mm3 (1.96-9.15); NEUTROPHILS PERCENT AUTO 48 % (41-73); Platelet Count 135 K/mm3 (150-400); RDW Coefficient Variation 14.3 % (11.7-14.2); RDW Standard Deviation 48.6 fL (35.1-46.3); Red Blood Cell Count 3.79 M/mm3 (4.30-5.90); White Blood Cell Count 4.05 K/mm3 (4.00-11.30)
[2023-03-28 15:30] LABS: Alanine Aminotransfer (ALT/SGP 20 U/L (12-78); Albumin, Blood 3.1 g/dL (3.4-5.0); Albumin/Globulin Ratio 0.9 (0.8-1.8); Alk Phos 96 U/L (50-136); Anion Gap 6 mmol/L (6-16); Aspartate Aminotrans (AST/SGOT 24 U/L (12-37); Bilirubin, Total 0.3 mg/dL (0.1-1.0); Blood Urea Nitrogen 23 mg/dL (8-24); Bun/Creatinine Ratio 34.5 (12.0-20.0); CO2, Blood 25 mmol/L (21-32); Calcium, Blood 8.5 mg/dL (8.5-10.1); Chloride, Blood 107 mmol/L (98-108); Creatinine, Blood 0.67 mg/dL (0.60-1.20); Globulin, Blood 3.3 g/dL (2.2-4.0); Glomerular Filtration Rate 99 (60-); Glucose, Blood 94 mg/dL (70-99); Potassium, Blood 4.1 mmol/L (3.5-5.5); Sodium, Blood 138 mmol/L (136-145); Total Protein, Blood 6.4 g/dL (6.4-8.2)
== END | disposition home or self-care (01) ==
LOC: LAB SHORT 12:20 → LAB 12:20
PROVIDERS: Internal Medicine Hematology & Oncology
DX: C61 Malignant neoplasm of prostate (principal)
CPT/HCPCS: 80053; 84153; 85025